=== PATIENT | female | born 1995 | race Caucasian/White ===

== ENCOUNTER 2022-05-25 17:25 | Emergency (ER) | payer MEDICAID ==
[~2022-05-25] VITALS: Ht 154.9 cm; Wt 56.2 kg
[2022-05-25 17:38] VITALS: BP 111/67
--- NOTE | 2022-05-25 17:47 | NUR ---
BIB SELF C/O NAUSEA, HEADACHE S/P FALL X 3 DAYS. DENIES LOC.
[2022-05-25] MEDS ORDERED: ONDANSETRON 4 MG ODT PO ONE (19:25)
[2022-05-25] MEDS ORDERED: ACET-10509 PO (20:00)
[2022-05-25] MEDS ORDERED: ONDA-188 PO (20:00)
--- NOTE | 2022-05-25 20:10 | NUR ---
PT C/O HEADACHE S/P FALL, PT DENIES LOC OR VOMITING, PT FEELS SLIGHT NAUSEA, PT SPEAKING WITH DR LOPEZ.
--- NOTE | 2022-05-25 20:22 | NUR ---
Patient discharged with v/s stable. Written and verbal after care instructions given and explained. Patient verbalized understanding. Ambulatory with steady gait. All questions addressed prior to discharge. Advised to follow up with PMD.
[2022-05-25 20:23] VITALS: BP 124/70
== END 2022-05-25 20:22 | disposition home or self-care (01) ==
LOC: MED 17:25
DX: S06.0X0A Concussion without loss of consciousness, initial encounter (principal); R11.0 Nausea; Z79.899 Other long term (current) drug therapy; W01.198A Fall on same level from slipping, tripping and stumbling with subsequent striking against other object, initial encounter; Y93.89 Activity, other specified; Y92.89 Other specified places as the place of occurrence of the external cause; Y99.8 Other external cause status
CPT/HCPCS: 70450; 81025; 99284; Q0162